=== PATIENT | female | born 1990 | race Caucasian/White ===

== ENCOUNTER → 2021-01-29 15:33 | Outpatient (CLI) | payer OTHER, SELFPAY ==
--- NOTE | 2021-01-29 15:37 | DI.RAD.S_ITS ---
PROCEDURE: XR CHEST 2V INDICATIONS: R76.12 TECHNIQUE: 2 views of the chest were acquired. COMPARISON: [facility], , CHEST 2 VIEW, 09/28/2016, 1:06. FINDINGS: Surgical changes and devices: None. Lungs and pleura: Lungs are clear. No pleural effusions or pneumothorax. Mediastinum: Mediastinal contours are normal. Heart size is normal. Bones and chest wall: No suspicious bony abnormalities. Soft tissues appear unremarkable. IMPRESSION: Stable radiographic evaluation of the chest without acute cardiopulmonary abnormalities or focal airspace disease. Dictated by: Franklyn Caro M.D. on 01/29/2021 at 16:59 Approved by: Franklyn Caro M.D. on 01/29/2021 at 16:59
== END ==
PROVIDERS: PCP Internal Medicine; Referring Provider Internal Medicine; Visit Provider Internal Medicine
DX: R07.9 Chest pain, unspecified (principal)
CPT/HCPCS: 71046

== ENCOUNTER → 2024-01-26 13:45 | Outpatient (CLI) | payer OTHER, SELFPAY ==
--- NOTE | 2024-01-26 13:46 | DI.US.S_ITS ---
PROCEDURE: US ABDOMEN COMPLETE INDICATIONS: RUQ PAIN TECHNIQUE: Real-time scanning was performed of the abdominal and retroperitoneal organs, with image documentation. COMPARISON: None. FINDINGS: Liver: Normal size liver with a smooth margin. No discrete mass. Gallbladder: Gallbladder is partially contracted and the wall cannot be accurately measured. Internal echotexture is similar to hepatic parenchyma suggesting diffuse sludge. There are several echogenic granular like stones dependently layering at the fundus. There is a calcification at the neck measuring 1.4 cm. No pericholecystic fluid or sonographic Correia sign. Biliary ducts: Intrahepatic bile ducts are non-dilated. Extrahepatic bile duct caliber measures 7.8 mm. Normal is 6-7 mm or less in diameter, or 10 mm or less post-cholecystectomy. Pancreas: Visualized portions of the pancreas are sonographically normal. Spleen: Spleen is normal in size and homogeneous in echotexture. Kidneys: Kidneys are normal in size and echotexture. Right kidney measures 10.8 cm long; left kidney measures 10.3 cm long. No hydronephrosis or nephrolithiasis. No solid masses. Aorta: Visualized aorta is normal in caliber at less than 3 cm. Iliacs: Proximal common iliac arteries are normal in caliber at less than 2.5 cm. IVC: Intrahepatic inferior vena cava is patent. Miscellaneous: No free abdominal fluid. IMPRESSION: Partially contracted gallbladder filled with sludge, granular calculi, and of possibly obstructing stone at the neck. Consider nuclear medicine HIDA scan to assess for gallbladder function. Normal size liver with mild hepatic steatosis. Minimal extrahepatic common duct dilatation without sonographic findings of choledocholithiasis. Correlate with LFTs to determine clinical significance. Dictated by: Germaine Hassan M.D. on 01/26/2024 at 17:45 Approved by: Germaine Hassan M.D. on 01/26/2024 at 17:50
== END ==
LOC: US 13:46
PROVIDERS: PCP Internal Medicine; Referring Provider Registered Nurse; Visit Provider Registered Nurse
DX: K82.0 Obstruction of gallbladder (principal); K82.8 Other specified diseases of gallbladder; K76.0 Fatty (change of) liver, not elsewhere classified; R10.11 Right upper quadrant pain
CPT/HCPCS: 76700

== ENCOUNTER → 2024-02-10 12:58 | Outpatient (CLI) | payer OTHER, SELFPAY ==
--- NOTE | 2024-02-10 13:01 | DI.NM.S_ITS ---
PROCEDURE: NM HIDA NO EJECTION FRACTION RADIOPHARMACEUTICAL: 5.4 mCi Tc-99m mebrofenin IV. INDICATIONS: CALCULI OF GALLBLADDER,SLUDGE,RUQ PAIN TECHNIQUE: Following intravenous administration of Tc-99m mebrofenin, sequential anterior abdominal images were obtained through at least 60 minutes. COMPARISON: [facility], , US ABDOMEN COMPLETE, 01/26/2024, 13:59. FINDINGS: There is normal tracer uptake and excretion by the liver. There is normal visualization of intrahepatic ducts and common bile duct. The gallbladder is not visualized. There is normal tracer excretion into duodenum. IMPRESSION: Nonvisualization of the gallbladder. This can be seen with acute cholecystitis, recommend clinical correlation. Dictated by: Nicholas Bailon M.D. on 02/12/2024 at 18:58 Approved by: Nicholas Bailon M.D. on 02/12/2024 at 19:00
== END ==
PROVIDERS: PCP Internal Medicine; Referring Provider Internal Medicine; Visit Provider Internal Medicine
DX: K80.20 Calculus of gallbladder without cholecystitis without obstruction (principal); K82.8 Other specified diseases of gallbladder; R10.11 Right upper quadrant pain
CPT/HCPCS: 78226; A9537

== ENCOUNTER 2024-02-29 07:12 | Day surgery (SDC) | payer OTHER, SELFPAY ==
[2024-02-27 15:06] VITALS: BMI 26.4
[2024-02-29] VITALS (8 sets, daily range): BP systolic 116–135; BP diastolic 78–90; PULSE 61–78; RESP 12–17; TEMP 36.2; O2SAT 97–100; BMI 26.4
--- NOTE | 2024-02-29 | PATH_ITS ---
[facility] Accession Number: [id number] No. of containers..01 Tissue . 01 Material submitted: . gallbladder - GALLBLADDER . 01 Diagnosis: GALLBLADDER: Chronic cholecystitis with cholelithiasis. No dysplasia or malignancy identified. [facility] 03/02/20241710 Local . 01 Electronically signed: . Baltazar Austin MD, Pathologist NPI- [id number] . 01 Gross description: . Received in formalin with two patient identifiers and gallbladder, is an intact gallbladder, 9.2 x 2.4 x 1.5 cm, with an unremarkable external surface. The cystic duct margin is inked blue and a zhang lymph node candidate is identified 0.4 cm in greatest dimension. The lumen is filled with white gelatinous material with a white, friable, roughened calculus, 1.7 cm in greatest dimension. The mucosa is zhang and velvety with no yellow areas of discoloration, polyps, or lesions identified. The enriquez average 0.3 cm thick. Water [employer] sections to include the cystic duct margin and full thickness sections are submitted in A1. ([id number]) /MRV 03/02/20241710 Local . 01 Pathologist provided ICD-10: K80.10 . 01 CPT . 538378 Specimen Comment: A courtesy copy of this report has been sent to [phone] Performed at: [address] [address], [place], [place] [id number] MD Baltazar Austin MD Phone: [phone]
--- NOTE | 2024-02-29 | DI.RAD.S_ITS ---
PROCEDURE: XR CHOLANGIOGRAM OPERATIVE INDICATIONS: OR COMPARISON: None. FINDINGS: Biliary ducts: The surgeon injected contrast into the biliary ducts after cannulation of the cystic duct stump. Visualized intra- and extrahepatic bile ducts are normal in caliber, without strictures. No intraluminal filling defects to suggest retained ductal stones or sludge. No evidence for iatrogenic ductal injury. Duodenum: Contrast flows promptly through the sphincter of Oddi into the duodenum, which appears normal in caliber. IMPRESSION: Normal operative cholangiogram. Dictated by: Paresh Reyes M.D. on 03/02/2024 at 16:35 Approved by: Paresh Reyes M.D. on 03/02/2024 at 16:35
[2024-02-29] MEDS: SCOPOLAMINE 1 PATCH TOP (08:22)
[2024-02-29] MEDS: LACTATED RINGERS 1,000 ML 42 ML IV (08:23)
--- NOTE | 2024-02-29 08:31 | PM.PREOP ---
Pre-operative Note COVID-19 COVID-19 status: Not tested Interval Note History & Physical reviewed/Exam performed by Physician: Yes Changes to H&P: No ASA Class (for procedural sedation): I
[2024-02-29] MEDS: CEFAZOLIN 2 GM/100 ML PREMIX 100 ML IV (08:55)
[2024-02-29] MEDS: ACETAMINOPHEN IV 1,000 MG/100 ML VIAL 400 MG IV (09:05)
--- NOTE | 2024-02-29 09:08 | SUR.OPER ---
Supine on padded OR bed, head on pillow, safety belt at thigh, right arm padded and tucked at side. left arm secured on padded arm board <90 degrees abduction. Legs uncrossed. Padded footboard in place. Tape over blanket to secure lower legs.
[2024-02-29] MEDS: iopamidoL 30 ML VIAL INJ (09:26)
[2024-02-29] MEDS: BUPIVACAINE 0.5% (PF) 30 ML, EPINEPHrine 0.15 MG INJ (09:27)
[2024-02-29] MEDS: HYDROMORPHONE 1 MG INJ IV ×3 (10:20→10:48)
--- NOTE | 2024-02-29 10:21 | P.OP_ITS ---
Operative Date/Time/Diagnoses Date of procedure: 02/29/24 Time of procedure: 10:21 Pre-op diagnosis: Symptomatic cholelithiasis Post-op diagnosis: same Procedure & Clinicians Procedure: Laparoscopic cholecystectomy with intraoperative cholangiogram Same procedure as scheduled: Yes Surgeon: Elmer Diehl Telecommunications Officer: Bari Grace Anesthesia Type: General Operative Notes Procedure in detail: The patient was given preoperative antibiotic. The patient was brought to the operating room, placed on the table in the supine position. General endotracheal anesthesia was induced. The abdomen was prepped and draped. A time-out was performed. We made a 1 cm infraumbilical incision. We dissected down to the base of the umbilical stalk using cautery. We grasped the umbilical stalk with a Carley clamp to elevate the abdominal wall. We scored the fascia in the midline with cautery 1 cm. We pierced the peritoneum with a Peon clamp. The Geno port was placed and the abdomen was insufflated to 15 mmHg. A 5 mm 30 degree laparoscopic was inserted. There was no evidence of any injury from the entry. Next, we placed 5 mm ports in the subxiphoid position and right upper quadrant at the midclavicular line and anterior axillary line. The patient was then positioned in reverse Trendelenburg and the table was tilted to the left. The gallbladder was grasped at the dome and retracted cephalad. We then dissected the cystic structures with a combination of hook cautery and blunt dissection. We obtained a critical view. Next, a cholangiogram was performed using the 6 Sinhala ureteral catheter. There was good flow of contrast into the duodenum and liver with no obvious filling defects. The cystic duct- common duct junction was well visualized. We then placed hemoclips on the cystic duct and artery and divided the cystic duct and artery sharply between the clips. The gallbladder was then dissected off the liver and placed in a specimen retrieval bag. We irrigated the right upper quadrant and all the aspirate returned clear. We then removed the 5 mm ports under direct vision we removed the Geno port. We then injected some local into the fascia and closed the fascia with 2 interrupted 0 Vicryl sutures. The skin incisions were closed with 4 Monocryl and Steri-Strips were applied. Band-Aids were applied over the Steri-Strips. EBL: 10 mL Specimen: Gallbladder Post-operative Condition: stable Disposition: PACU
[2024-02-29] MEDS: ONDANSETRON 4 MG/2 ML INJ IV (10:22)
[2024-02-29] MEDS: OXYCODONE IR 5 MG TABLET PO ×2 (10:44→11:14)
--- NOTE | 2024-02-29 12:13 | SUR.PHASEII ---
See new orders from Peb[facility] GRANT. Informed of patient continued nausea, no emesis. Not drowsy.
[2024-02-29] MEDS: PROMETHAZINE 25 MG TABLET 12.5 MG PO (12:24)
== END 2024-02-29 12:31 | disposition home or self-care (01) ==
PROVIDERS: PCP Internal Medicine; Referring Provider Surgery; Visit Provider Surgery
PROC: 0FT44ZZ Resection of Gallbladder, Percutaneous Endoscopic Approach (ICD-10-PCS; CPT 47562; principal; 2024-02-29 08:45)
DX: K80.20 Calculus of gallbladder without cholecystitis without obstruction (principal)
CPT/HCPCS: 47563; 74300; J0134; J0171; J0690; J1100; J1171; J1885; J2405; J2704; J3010; Q9967